=== PATIENT | male | born 1985 | race Caucasian/White ===

== ENCOUNTER 2017-01-14 21:32 | Emergency (ER) | payer SELFPAY ==
[2017-01-14 22:03] LABS: ABSOLUTE EOSINOPHILS # (AUTO) 0.4 10^3/uL (0.0-0.6); ABSOLUTE LYMPHOCYTES (AUTO) 4.1 10^3/uL (0.5-4.7); ABSOLUTE MONOCYTES (AUTO) 0.6 10^3/uL (0.1-1.4); ABSOLUTE NEUT (AUTO) 5.3 10^3/uL (1.7-8.2); BASOPHILS % (AUTO) 0.5 % (0-2); EOSINOPHILS % (AUTO) 3.9 % (0-6); HEMATOCRIT 45.3 % (37.9-51.0); HEMOGLOBIN 15.8 g/dL (13.5-17.0); HGB HCT DIFFERENCE 2.1; LYMPHOCYTES % (AUTO) 39.3 % (13-45); MEAN CORPUSCULAR HEMOGLOBIN 29.8 pg (27.0-33.4); MEAN CORPUSCULAR HGB CONC 34.9 g/dL (32.0-36.0); MEAN CORPUSCULAR VOLUME 85 fl (80-97); RED BLOOD COUNT 5.31 10^6/uL (4.35-5.55); RED CELL DISTRIBUTION WIDTH 12.7 % (11.5-14.0); SEGMENTED NEUTROPHILS % (AUTO) 50.3 % (42-78); WHITE BLOOD COUNT 10.5 10^3/uL (4.0-10.5)
[2017-01-14 22:09] LABS: PROTHROMBIN TIME 12.9 SEC (11.4-15.4)
[2017-01-14 22:21] LABS: ALANINE AMINOTRANSFERASE 61 U/L (21-72); ALBUMIN 4.6 g/dL (3.5-5.0); ALKALINE PHOSPHATASE 56 U/L (38-126); ANION GAP 14 (5-19); ASPARTATE AMINO TRANSFERASE 31 U/L (17-59); BILIRUBIN,DIRECT 0.4 mg/dL (0.0-0.4); BILIRUBIN,TOTAL 0.6 mg/dL (0.2-1.3); BLOOD UREA NITROGEN 13 mg/dL (7-20); CALCIUM 10.2 mg/dL (8.4-10.2); CARBON DIOXIDE 29 mmol/L (22-30); CHLORIDE 102 mmol/L (98-107); CREATINE KINASE 274 U/L (55-170); CREATININE RESULT 0.79 mg/dL (0.52-1.25); GLUCOSE 104 mg/dL (75-110); POTASSIUM 4.2 mmol/L (3.6-5.0); SODIUM 145.3 mmol/L (137-145); TOTAL PROTEIN 7.3 g/dL (6.3-8.2)
[2017-01-14 22:32] LABS: CREATINE KINASE MB 2.05 ng/mL (<4.55)
[2017-01-14 22:33] LABS: TROPONIN I < 0.012 ng/mL
--- NOTE | 2017-01-14 22:46 | ER Document Report ---
ED Extremity Problem, Lower - General Chief Complaint: Leg Pain Stated Complaint: LEG INJURY Time Seen by Provider: 01/14/17 22:31 Mode of Arrival: Ambulatory Information source: Patient TRAVEL OUTSIDE OF THE [place] IN LAST 30 DAYS: No - HPI Patient complains to provider of: Injury Location: Leg Occurred: Last week Where: Public place Onset/Duration: Sudden Quality of pain: Achy, Cramping Severity: Moderate Recent injury: Yes Notes: Patient arrives with complaints of right calf pain. Patient states that approximately a [place] the [place]. He was [place] and took off to go to run when he felt an immediate pain in the back of his right calf. States that after that the calf became very stiff. He was having trouble with ambulating secondary to the pain. The pain seems to have improved, but now the calf is somewhat swollen and he noticed some bruising around the ankle this morning. He has a family history of blood clots and was concerned that he may have a blood clot in his leg. He denies any recent trips or surgeries, he denies any history of DVT or PE, no history of cancer. He denies any chest pain or shortness of breath. No abdominal pain. No nausea vomiting diarrhea. He denies any other complaints at this time. Past Medical History - Social History Smoking Status: Unknown if Ever Smoked Family History: Reviewed & Not Pertinent Patient has suicidal ideation: No Patient has homicidal ideation: No Renal/ Medical History: Denies: Hx Peritoneal Dialysis Review of Systems - Review of Systems -: Yes All other systems reviewed and negative Physical Exam - Vital signs Vitals: Temp Pulse Resp BP Pulse Ox 98.8 F 64 18 146/72 H 99 01/14/17 21:36 01/14/17 21:36 01/14/17 21:36 01/14/17 21:36 01/14/17 21:36 - Notes Notes: GENERAL: alert, cooperative, nontoxic, no distress. HEAD: normocephalic, atraumatic EYES: conjunctiva pink without discharge, no external redness or swelling. EARS: no external swelling, no external redness NOSE: atraumatic, no external swelling MOUTH/THROAT: mucous membranes moist and pink, posterior pharynx without erythema, swelling, exudate. No trismus or drooling. NECK: soft, supple, full range of motion, no meningismus. CHEST: no distress, lungs clear and equal throughout. No wheezing, rales, rhonchi. CARDIAC: regular rate and rhythm, no murmur, normal capillary refill, normal pulses. No peripheral edema noted. ABDOMEN: Soft, nontender. BACK: full range of motion, no CVA tenderness. EXTREMITIES: full range of motion of all extremities. Mild swelling noted to the right calf. Compartments are soft. Slight tenderness to palpation of the posterior calf. Mild bruising noted around the ankle. Normal pulse and sensation distally. There is no erythema. Achilles is intact with a normal Boyer's test. NEURO: alert and oriented x 3, no focal deficits, full range of motion of all extremities. PYSCH: appropriate mood, affect. Patient is cooperative. SKIN: pink, warm, dry, no rash. Course - Re-evaluation Re-evalutation: 01/14/17 22:44 Patient is nontoxic appearing with stable vitals. The patient had right calf pain after taking off running at the beach. He now has some swelling and bruising. Pain seems to be getting better. He has a family history of DVT so he was concerned he may have a DVT. Venous Doppler in the emergency department shows no DVT. The patient had labs and an EKG ordered by the pivot nurse. EKG shows no acute abnormalities. His lab work is unremarkable. Patient likely either strained or potentially partially tore something within his calf. Again the Achilles is intact. Patient will have an Mehrdad wrap applied. DC home with Voltaren. Rest, ice, elevate. Follow-up with Orth O if not better in 1 week, sooner for increased pain, fever, redness, chest pain, shortness of breath, any further concerns. The patient is noted to have elevated blood pressure during today's emergency department visit. The patient was informed of this finding. The patient was instructed that this may be related to pre-hypertension and requires further evaluation with a primary care provider. The patient has no hypertensive symptoms at this time. The patient's emergency department workup and current diagnosis were explained to the patient and or family. Follow-up instructions were provided. Medications if prescribed were discussed. Instructions for when to return to the emergency department including specific worrisome symptoms were discussed with the patient and/or family. - Vital Signs Vital signs: Temp Pulse Resp BP Pulse Ox 98.8 F 64 18 146/72 H 99 01/14/17 21:36 01/14/17 21:36 01/14/17 21:36 01/14/17 21:36 01/14/17 21:36 - Laboratory Result Diagrams: 01/14/17 21:50 01/14/17 21:50 Laboratory results interpreted by me: 01/14/17 21:50 Sodium 145.3 H Creatine Kinase 274 H - Diagnostic Test Radiology reviewed: Reports reviewed - Venous Doppler negative per the private wealth advisor. - EKG Interpretation by Me EKG shows normal: Sinus rhythm, Godley, Intervals, QRS Complexes, ST-T Waves Rate: Normal Rhythm: NSR Procedures - Immobilization Right calf Pre-Proc Neuro Vasc Exam: Normal Immobilizer type: Mehrdad wrap Performed by: PCT Post-Proc Neuro Vasc Exam: Normal Alignment checked and good: Yes Discharge - Discharge Clinical Impression: Strain of calf muscle Qualifiers: Encounter type: initial encounter Laterality: right Qualified Code(s): S86.811A - Strain of other muscle(s) and tendon(s) at lower leg level, right leg , initial encounter Condition: Stable Disposition: HOME, SELF-CARE Instructions: Muscle Strain ([facility]) Additional Instructions: Wear Mehrdad wrap as needed. Rest, ice, elevate the injury. Take medications as prescribed. Follow-up with Orth O if not better in 1 week, sooner for increased pain, fever, redness, drainage, chest pain or shortness of breath, or any further concerns. Your blood pressure was elevated during today's visit. Have this rechecked with your doctor. Prescriptions: Diclofenac Sodium [Voltaren 50 Mg Tablet.] 50 mg PO BID #20 tablet.dr Forms: Elevated Blood Pressure Referrals: KIRBY ARMSTRONG MD [ACTIVE STAFF] - Follow up as needed
[2017-01-14 23:00] VITALS: BP 136/52
--- NOTE | 2017-01-14 23:20 | RADIOLOGY REPORT (SQ) ---
EXAM DESCRIPTION: CHEST PA/LAT COMPLETED DATE/TIME: 01/14/2017 10:31 pm REASON FOR STUDY: POSSIBLE DVT COMPARISON: None. EXAM PARAMETERS: NUMBER OF VIEWS: two views TECHNIQUE: Digital Frontal and Lateral radiographic views of the chest acquired. RADIATION DOSE: NA LIMITATIONS: none FINDINGS: LUNGS AND PLEURA: No acute opacities, masses or pneumothorax. No pleural effusion. MEDIASTINUM AND HILAR STRUCTURES: No masses or contour abnormalities. HEART AND VASCULAR STRUCTURES: Heart normal size. No evidence for failure. BONES: No acute findings. HARDWARE: None in the chest. OTHER: No other significant finding. IMPRESSION: No acute findings. TECHNICAL DOCUMENTATION: JOB ID: [id number] [employer]- All Rights Reserved
--- NOTE | 2017-01-15 08:15 | XCELERA REPORT ---
[address] [address] Lower Extremity Venous Evaluation Name: CHITO DOUGLAS Age: 31 yrs Gender: Male : 1985 Patient Status: Preadmit Patient Location: ER Study Date: 01/14/2017 10:26 PM Procedure: Color flow and duplex imaging of the veins of the right lower extremity as well as the left Common Femoral vein. Reason For Study: left calf pain s/p injury Ordering Physician: JEAN ROBISON PA-C Performed By: Angela Carranza Right Sided Venous Evaluation Normal vessel filling wall to wall, compression and augmentation as well as Colour flow down to the infrageniculate veins. Left Sided Venous Evaluation The left common femoral vein is fully compressible. Spontaneous and phasic flow is present in the left common femoral vein. Interpretation Summary No duplex evidence of DVT or obstruction in the right lower extremity nor in the left Common Femoral vein. : JEAN ROBISON PA-C > Eddie Arroyo
--- NOTE | 2017-01-15 17:36 | EKG REPORT ---
SEVERITY:- NORMAL ECG - SINUS RHYTHM : Confirmed by: Nisha Wesley MD 15-Jan-2017 17:35:38
== END 2017-01-14 22:59 | disposition home or self-care (01) ==
LOC: ER 21:32
DX: S86.911A Strain of unspecified muscle(s) and tendon(s) at lower leg level, right leg, initial encounter (principal); X58.XXXA Exposure to other specified factors, initial encounter; M79.661 Pain in right lower leg; R03.0 Elevated blood-pressure reading, without diagnosis of hypertension; Z83.2 Family history of diseases of the blood and blood-forming organs and certain disorders involving the immune mechanism
CPT/HCPCS: 36415; 71020; 80053; 82550; 82553; 84484; 85025; 85610; 93005; 93010; 93971; 99284

== ENCOUNTER 2018-02-15 16:10 | Emergency (ER) | payer SELFPAY ==
[2018-02-15] MEDS ORDERED: ASPIRIN 325 MG TABLET PO ONE (16:27)
--- NOTE | 2018-02-15 16:29 | ER Document Report ---
ED Medical Screen (RME) - General Chief Complaint: Chest Pain Stated Complaint: CHEST PAIN Time Seen by Provider: 02/15/18 16:27 Mode of Arrival: Ambulatory Information source: Patient TRAVEL OUTSIDE OF THE [place] IN LAST 30 DAYS: No - HPI Patient complains to provider of: cp Onset: Other - pt with intermittent L-sided CP for the past 3 days. Has not taken ASA - Related Data Allergies/Adverse Reactions: No Known Allergies Allergy (Unverified 02/15/18 16:18) Past Medical History Renal/ Medical History: Denies: Hx Peritoneal Dialysis
[2018-02-15 16:48] LABS: ABSOLUTE BASOPHILS # (AUTO) 0.1 10^3/uL (0.0-0.2); ABSOLUTE EOSINOPHILS # (AUTO) 0.2 10^3/uL (0.0-0.6); ABSOLUTE LYMPHOCYTES (AUTO) 3.6 10^3/uL (0.5-4.7); ABSOLUTE MONOCYTES (AUTO) 0.6 10^3/uL (0.1-1.4); EOSINOPHILS % (AUTO) 1.9 % (0-6); HEMATOCRIT 44.2 % (37.9-51.0); HEMOGLOBIN 15.3 g/dL (13.5-17.0); MEAN CORPUSCULAR HEMOGLOBIN 29.5 pg (27.0-33.4); MEAN CORPUSCULAR HGB CONC 34.7 g/dL (32.0-36.0); MEAN CORPUSCULAR VOLUME 85 fl (80-97); MONOCYTES % (AUTO) 5.6 % (3-13); PLATELET COUNT 324 10^3/uL (150-450); RED CELL DISTRIBUTION WIDTH 12.7 % (11.5-14.0); SEGMENTED NEUTROPHILS % (AUTO) 60.5 % (42-78); TOTAL CELLS COUNTED % (AUTO) 100 %; WHITE BLOOD COUNT 11.6 10^3/uL (4.0-10.5)
[2018-02-15 17:09] LABS: ALANINE AMINOTRANSFERASE 41 U/L (21-72); ALBUMIN 4.8 g/dL (3.5-5.0); ALKALINE PHOSPHATASE 55 U/L (38-126); ANION GAP 15 (5-19); ASPARTATE AMINO TRANSFERASE 29 U/L (17-59); BILIRUBIN,DIRECT 0.2 mg/dL (0.0-0.4); BILIRUBIN,TOTAL 0.8 mg/dL (0.2-1.3); BLOOD UREA NITROGEN 13 mg/dL (7-20); CALCIUM 9.9 mg/dL (8.4-10.2); CARBON DIOXIDE 26 mmol/L (22-30); CHLORIDE 104 mmol/L (98-107); CREATINE KINASE 226 U/L (55-170); GLUCOSE 74 mg/dL (75-110); POTASSIUM 4.1 mmol/L (3.6-5.0); SODIUM 144.9 mmol/L (137-145); TOTAL PROTEIN 7.7 g/dL (6.3-8.2)
--- NOTE | 2018-02-15 17:09 | RADIOLOGY REPORT (SQ) ---
EXAM DESCRIPTION: CHEST 2 VIEWS COMPLETED DATE/TIME: 02/15/2018 5:01 pm REASON FOR STUDY: cp Dull pain feels like a implant being applied COMPARISON: None. EXAM PARAMETERS: NUMBER OF VIEWS: two views TECHNIQUE: Digital Frontal and Lateral radiographic views of the chest acquired. RADIATION DOSE: NA LIMITATIONS: none FINDINGS: LUNGS AND PLEURA: No opacities, masses or pneumothorax. No pleural effusion. MEDIASTINUM AND HILAR STRUCTURES: No masses or contour abnormalities. HEART AND VASCULAR STRUCTURES: Heart normal size. No evidence for failure. BONES: No acute findings. HARDWARE: None in the chest. OTHER: No other significant finding. IMPRESSION: NO ACUTE RADIOGRAPHIC FINDING IN THE CHEST. TECHNICAL DOCUMENTATION: JOB ID: [id number] [email or web address]- All Rights Reserved Reading location - IP/workstation name: [email or web address]
--- NOTE | 2018-02-15 17:30 | EKG REPORT ---
SEVERITY:- NORMAL ECG - SINUS RHYTHM : Confirmed by: Chanelle Mcelroy 15-Feb-2018 17:29:05
[2018-02-15 17:52] LABS: CREATINE KINASE MB 2.38 ng/mL (<4.55)
[2018-02-15 17:54] LABS: TROPONIN I < 0.012 ng/mL
--- NOTE | 2018-02-15 18:57 | ER Document Report ---
ED General - General Chief Complaint: Chest Pain Stated Complaint: CHEST PAIN Time Seen by Provider: 02/15/18 16:27 Mode of Arrival: Ambulatory TRAVEL OUTSIDE OF THE [place] IN LAST 30 DAYS: No - HPI Patient complains to provider of: chest pain that started in back and moves to chest and left arm Notes: This is a 32-year-old well-appearing male with no past medical history who presents to the emergency department with chest pain that started 1 week ago but got worse today. States the pain started in his back it comes and goes, it radiates from his back through his left axilla to his anterior chest, is sharp in nature, is exacerbated when he raises his left arm while driving, and improves when he lays down. Patient denies any fevers chills, diaphoresis, cough, does endorse pain on exhalation, denies nausea, vomiting, has full strength. Of note patient with strong family history of methylene tetrahydrofolate reductase mutation and grandmother of [place] at 35 years old, grandfather of [place] in his 30s as well. - Related Data Allergies/Adverse Reactions: No Known Allergies Allergy (Unverified 02/15/18 16:18) Past Medical History - General Information source: Patient - Social History Smoking Status: Never Smoker - smokeless tobacco 1 can per day 10 years Chew tobacco use (# tins/day): Yes Frequency of alcohol use: Occasional Drug Abuse: None Family History: Other - Mother and sisters with MTHFR mutation, Patient has suicidal ideation: No Patient has homicidal ideation: No Renal/ Medical History: Denies: Hx Peritoneal Dialysis Review of Systems - Review of Systems Constitutional: See HPI EENT: See HPI Cardiovascular: See HPI Respiratory: Hurts to breathe - On exhalation Gastrointestinal: See HPI Genitourinary: No symptoms reported Male Genitourinary: No symptoms reported Musculoskeletal: See HPI Skin: No symptoms reported Hematologic/Lymphatic: No symptoms reported Neurological/Psychological: No symptoms reported Physical Exam - Vital signs Vitals: Temp Pulse Resp BP Pulse Ox 97.7 F 64 18 137/74 H 99 02/15/18 16:24 02/15/18 16:24 02/15/18 16:24 02/15/18 16:24 02/15/18 16:24 Interpretation: Normal - General General appearance: Appears well, Alert In distress: None - HEENT Head: Normocephalic, Atraumatic Eyes: Normal Pupils: PERRL - Respiratory Respiratory status: No respiratory distress Chest status: Nontender Breath sounds: Normal Chest palpation: Tender - Tender to palpation starting left subscapular area around left axilla into anterior chest - Cardiovascular Rhythm: Regular Heart sounds: Normal auscultation Murmur: No - Abdominal Inspection: Normal Distension: No distension Bowel sounds: Normal Tenderness: Nontender Organomegaly: No organomegaly - Back Back: Normal, Nontender - Extremities General upper extremity: Normal inspection, Nontender, Normal color, Normal ROM , Normal temperature General lower extremity: Normal inspection, Nontender, Normal color, Normal ROM , Normal temperature, Normal weight bearing. No: Lucy's sign - Neurological Neuro grossly intact: Yes Cognition: Normal Orientation: AAOx4 [place] Coma Scale Eye Opening: Spontaneous Trevor Coma Scale Verbal: Oriented [place] Coma Scale Motor: Obeys Commands Trevor Coma Scale Total: 15 Speech: Normal Motor strength normal: LUE, RUE, LLE, RLE Sensory: Normal - Psychological Associated symptoms: Normal affect, Normal mood - Skin Skin Temperature: Warm Skin Moisture: Dry Skin Color: Normal Course - Re-evaluation Re-evalutation: 02/15/18 19:[address] James. Reinforced that this pain is most likely secondary to musculoskeletal skeletal strain. MCHFR mutation not a concern for elevated cardiac risk. Heart score is 0. EKG showed no evidence of STEMI, initial troponin was negative. 3-hour troponin is not necessary as this most likely represents muscular skeletal pain and we have very low concern for cardiovascular event. - Vital Signs Vital signs: Temp Pulse Resp BP Pulse Ox 97.7 F 64 18 137/74 H 99 02/15/18 16:24 02/15/18 16:24 02/15/18 16:24 02/15/18 16:24 02/15/18 16:24 - Laboratory Result Diagrams: 02/15/18 16:35 02/15/18 16:35 Laboratory results interpreted by me: 02/15/18 02/15/18 16:35 16:35 WBC 11.6 H Glucose 74 L Creatine Kinase 226 H Discharge - Discharge Clinical Impression: Strain of muscle at thorax level Condition: Good Disposition: HOME, SELF-CARE Instructions: Chest Wall Pain ([facility])
[2018-02-15 20:38] VITALS: BP 124/74
== END 2018-02-15 20:39 | disposition home or self-care (01) ==
LOC: ER 16:10
DX: S29.019A Strain of muscle and tendon of unspecified wall of thorax, initial encounter (principal); X58.XXXA Exposure to other specified factors, initial encounter; R07.1 Chest pain on breathing; M54.9 Dorsalgia, unspecified; M79.602 Pain in left arm; Z72.0 Tobacco use; Z82.49 Family history of ischemic heart disease and other diseases of the circulatory system; Z84.81 Family history of carrier of genetic disease
CPT/HCPCS: 36415; 71046; 80053; 82550; 82553; 84484; 85025; 93005; 93010; 99285